=== PATIENT | male | born 1970 | race Two or more races ===

== ENCOUNTER 2021-11-07 07:46 | Emergency (ER) | payer MEDICAID, OTHER ==
[~2021-11-07] VITALS: Ht 175.3 cm; Wt 86.2 kg
[2021-11-07 08:19] LABS: Basophils # (auto) 0 10 ^3/uL (0-0.2); Basophils % (auto) 0.3 % (0.0-2.0); Eosinophils # (auto) 0.2 10 ^3/uL (0-0.8); Eosinophils % (auto) 3.8 % (0.0-7.0); Hematocrit 44.5 % (41.0-53.0); Hemoglobin 15.6 g/dL (13.5-17.5); Lymphocytes # (auto) 1.5 10 ^3/uL (0.4-5.4); Lymphocytes % (auto) 30.9 % (10.0-50.0); Mean Corpuscular Hemoglobin 32.2 pg (28.0-32.0); Mean Corpuscular Volume 91.8 fL (80.0-100.0); Monocytes # (auto) 0.4 10 ^3/uL (0-1.3); Monocytes % (auto) 8.2 % (0.0-12.0); Neutrophils # (auto) 2.8 10 ^3/uL (1.6-8.6); Neutrophils % (auto) 56.8 % (37.0-80.0); Nucleated Red Blood Cells % 0.2 %; Red Blood Cells 4.85 10^6/uL (4.5-5.90); Red Cell Distribution Width 13.1 % (11.8-14.3)
[2021-11-07 08:28] LABS: Urine Bacteria NONE SEEN /hpf (None Seen); Urine Blood Negative /uL (Negative); Urine Budding Yeast OCCASIONAL /hpf (None Seen); Urine Hyaline Cast FEW /lpf (0 - 2); Urine Mucus FEW (None Seen); Urine Specific Gravity 1.024 (1.001-1.035); Urine WBC <1 /hpf (0 - 3)
[2021-11-07 08:37] LABS: Albumin 4.2 g/dL (3.4-5.0); Calcium 8.8 mg/dL (8.5-10.1); Potassium 3.9 mmol/L (3.5-5.1)
[2021-11-07 08:41] LABS: BUN/Creatinine Ratio 23.1; Bilirubin, Total 0.4 mg/dL (0.2-1.0); Total Protein 7.6 g/dL (6.4-8.2)
[2021-11-07 09:23] VITALS: BP 122/74
[2021-11-07] MEDS ORDERED: METH750T22 PO (10:40)
[2021-11-07] MEDS ORDERED: DICY10CA PO (10:40)
[2021-11-07] MEDS ORDERED: DOCU-94 PO (10:40)
== END 2021-11-07 10:48 | disposition home or self-care (01) ==
LOC: ER 07:46
DX: K59.00 Constipation, unspecified (principal); K40.90 Unilateral inguinal hernia, without obstruction or gangrene, not specified as recurrent
CPT/HCPCS: 36415; 74176; 80053; 81001; 85025; 93005

== ENCOUNTER 2025-01-01 09:57 | Inpatient (IN) | payer MEDICAID ==
[~2025-01-01] VITALS: Ht 170.2 cm; Wt 87.0 kg
[~2025-01-01 09:57] MED LIST: DICY10CA PO; DOCU-94 PO; METH-1182 PO
--- NOTE | 2025-01-01 11:00 | ED.PDOC ---
GI ASSESSMENT HPI Comments 54 y/o M, with PMHx of anxiety presents to the ED for CC of GIB. Patient states, he has been experiencing dark black stool onset, [id number]. Patient reports, that he has no abdominal pain or discomfort however, is experiencing slight chest pain that radiates into his back and shoulders. Chest pain is dull, nonexertional, not associated with SOB, palpitations, diaphoresis. He does take ibuprofen daily, BID. Patient endorses, not taking his prescribed medications d/t symptoms. Patient denies hematemesis, fever, chills, nausea, prior abdominal surgeries, AC use, fatigue, or weakness. No other symptoms or modifying factors present at this time. He has never had a colonoscopy previously. Chief Complaint: GI BLEED Time Seen by MD: 10:45 Primary Care Provider: JANAE Faust Notes: Nurses Notes, Medications, Allergies Allergies: Coded Allergies: NO KNOWN ALLERGIES (Unverified , 11/07/21) Home Meds Active Scripts Dicyclomine Hcl (BENTYL CAPSULE) 10 Mg Cp, 1 CAP PO TID PRN, #30 CAP 0 Refills Prov:MICHAEL SRINIVASAN 11/07/21 Methocarbamol (Methocarbamol) 750 Mg Tab, 750 MG PO QHSP PRN, #20 TAB Prov:MICHAEL SRINIVASAN 11/07/21 Docusate Sodium (Colace) 100 Mg Cap, 100 MG PO BID, #30 CAP Prov:MICHAEL SRINIVASAN 11/07/21 Information Source: Patient Mode of Arrival: Ambulatory Timing: Days Duration: Since onset Prehospital treatment: None Quality: None Vomitus: None Stool: Black Severity: Moderate Recent: None Recent Hx of: None Pain Location: None Modifying Factors: Nothing Associated sign and symptoms: Melena Past Medical History PAST MEDICAL HISTORY: Anxiety Surgical History: Denies all surgeries Family History Family History: Reviewed,noncontributory to illness Social History Smoker: Non-Smoker Alcohol: Denies ETOH Use Drugs: Denies Drug Use Lives In: Home Constitutional: denies: chills, diaphoresis, fatigue, fever, malaise, sweats, weakness, others EENTM: denies: blurred vision, double vision, ear bleeding, ear discharge, ear drainage, ear pain, ear ringing, eye pain, eye redness, hearing loss, mouth pain, mouth swelling, nasal discharge, nose bleeding, nose congestion, nose pain, photophobia, tearing, throat pain, throat swelling, voice changes, others Respiratory: denies: cough, hemoptysis, orthopnea, SOB at rest, shortness of breath, SOB with excertion, stridor, wheezing, others Cardiovascular: reports: chest pain; denies: dizzy spells, diaphoresis, Dyspnea on exertion, edema, irregular heart beat, left arm pain, lightheadedness, palpitations, PND, syncope, others Gastrointestinal: reports: melena; denies: abdomen distended, abdominal pain, blood streaked bowels, constipated, diarrhea, dysphagia, difficulty swallowing, hematemesis, nausea, poor appetite, poor fluid intake, rectal bleeding, rectal pain, vomiting, others Genitourinary: denies: burning, dysuria, flank pain, frequency, hematuria, incontinence, penile discharge, penile sore, pain, testicle pain, testicle swelling, urgency, others Neurological: denies: dizziness, fainting, headache, left sided numbness, left sided weakness, numbness, paresthesia, pre-existing deficit, right sided numbness, right sided weakness, seizure, speech problems, tingling, tremors, weakness, others Musculoskeletal: denies: back pain, gout, joint pain, joint swelling, muscle pain, muscle stiffness, neck pain, others Integumetry: denies: bruises, change in color, change in hair/nails, dryness, laceration, lesions, lumps, rash, wounds, others Allergic/Immunocompromised: denies: Difficulty Healing, Frequent Infections, Hives, Itching, others Hematologic/Lymphatic: denies: anemia, blood clots, easy bleeding, easy bruising, swollen glands, others Endocrine: denies: excessive hunger, excessive sweating, excessive thirst, excessive urination, flushing, intolerance to cold, intolerance to heat, unexplained weight gain, unexplained weight loss, others Psychiatric: denies: anxiety, bipolar disorder, depression, hopeless, panic disorder, schizophrenia, sleepless, suicidal, others All Other Systems: Reviewed and Negative Physical Exam General Appearance: No Apparent Distress, Normal HEENT: Normal ENT Inspection, Pharynx Normal Neck: Full Range of Motion, Non-Tender, Normal, Normal Inspection Respiratory: Chest Non-Tender, Lungs Clear, No Accessory Muscle Use, No Respiratory Distress, Normal Breath Sounds Cardiovascular: No Edema, No Murmur, No Gallop, Normal Peripheral Pulses, Regular Rate/Rhythm Breast Exam: Deferred Gastrointestinal: No Organomegaly, Non Tender, No Pulsatile Mass, Normal Bowel Sounds, Soft Genitalia: Deferred Pelvic: Deferred Rectal: Deferred Extremities: No calf tenderness, Normal capillary refill, Normal inspection, Normal range of motion, Non-tender, No pedal edema Musculoskeletal : Apperance: Normal Neurologic: Alert, environmental services specialist II-XII nml as Tested, No Motor Deficits, Normal Affect, Normal Mood, No Sensory Deficits Cerebellar Function: Normal Reflexes: Normal Skin: Dry, Normal Color, Warm Lymphatic: No Adenopathy Was a procedure done? Was a procedure done?: No GI differential Dx Differential Diagnosis: Diverticular disease, Dysmenorrhea, Esophagitis, Gastritis/PUD, Gastroenteritis, GI hemorrhage, Inflammatory BD, Ischemic Bowel, Dehydration, Food Poisoning, Bacterial, Viral, Anemia X-Ray, Labs, Meds, VS Vital Signs Date Time Temp Pulse Resp B/P (MAP) Pulse Ox O2 Delivery O2 Flow Rate FiO2 01/01/25 11:57 97.9 8 18 114/59 (77) 98 97.9 01/01/25 11:37 62 18 98 Room Air 01/01/25 11:37 62 18 120/78 (92) 97 01/01/25 10:05 98.2 61 18 103/68 (80) 98 98.2 Lab Test 01/01/25 12:02 01/01/25 11:00 Range/Units Troponin I High Sensitivity Pending < 3 L </=54 ng/L White Blood Count 4.6 4.4-10.8 10^3/uL Red Blood Count 4.95 4.5-5.90 10^6/uL Hemoglobin 16.2 13.5-17.5 g/dL Hematocrit 45.6 41.0-53.0 % Mean Corpuscular Volume 92.3 80.0-100.0 fL Mean Corpuscular Hemoglobin 32.7 H 28.0-32.0 pg Mean Corpuscular Hemoglobin Concent 35.5 32.0-36.0 g/dL Red Cell Distribution Width 13.4 11.8-14.3 % Platelet Count 279 140-450 10^3/uL Mean Platelet Volume 6.9 6.9-10.8 fL Neutrophils (%) (Auto) 60.0 37.0-80.0 % Lymphocytes (%) (Auto) 26.9 10.0-50.0 % Monocytes (%) (Auto) 8.8 0.0-12.0 % Eosinophils (%) (Auto) 3.8 0.0-7.0 % Basophils (%) (Auto) 0.5 0.0-2.0 % Neutrophils # (Auto) 2.8 1.6-8.6 10 ^3/uL Lymphocytes # (Auto) 1.2 0.4-5.4 10 ^3/uL Monocytes # (Auto) 0.4 0-1.3 10 ^3/uL Eosinophils # (Auto) 0.2 0-0.8 10 ^3/uL Basophils # (Auto) 0 0-0.2 10 ^3/uL Nucleated Red Blood Cells 0.2 % Prothrombin Time 10.7 9.3-11.8 sec Prothrombin Time INR 1.01 0.9-1.15 Activated Partial Thromboplast Time 26.7 24.5-34.5 SEC Sodium Level 142 136-145 mmol/L Potassium Level 4.8 3.5-5.1 mmol/L Chloride Level 105 98-107 mmol/L Carbon Dioxide Level 31 20-31 mmol/L Anion Gap 6 5-15 Blood Urea Nitrogen 16 9-23 mg/dL Creatinine 1.02 0.700-1.30 mg/dL Glomerular Filtration Rate Calc 86 >90 mL/min BUN/Creatinine Ratio 15.7 10.0-20.0 Serum Glucose 96 74-106 mg/dL Calcium Level 9.9 8.7-10.4 mg/dL Lipase 38 12-53 U/L Current Medications Medications (Trade) Dose Ordered Sig/Daniel Route Start Time Stop Time Status Last Admin Pantoprazole Sodium (Protonix) 40 mg ONCE ONCE IV 01/01/25 11:00 01/01/25 11:17 DC 01/01/25 11:[address] [address] Ph: [phone] DIAGNOSTIC IMAGING Diagnostic Imaging Report : [id number] Signed PATIENT: JEREMY DINGACCT: [id number] UNIT: [id number] : 1970 LOC: ER ROOM / BED: / AGE / SEX: 54 / M ADM STATUS: REG ER SERVICE 1049 ORDERING PHYSICIAN: ABEBE MAURO MD PROCEDURE(s): CXRP - CHEST PORTABLE REASON: chest pain ORDER NUMBER(s): [id number], ACCESSION NUMBER(s): [id number] EXAM: XY CHEST PORTABLE HISTORY: chest pain COMPARISON: None TECHNIQUE: Portable AP view of the chest was performed. FINDINGS: No pneumothorax, consolidative infiltrates, or pulmonary edema. The heart is not enlarged. There is mild thoracic spondylosis and levoscoliosis. IMPRESSION: No acute intrathoracic process. ATED BY: SAEED RHODES MD DICTATED DATE/TIME: 01/01/25 1111 SIGNED BY: SAEED RHODES MD SIGNED DATE/TIME: 01/01/25 1111 CC: X-Ray, Labs, Meds, VS Comment Patient presenting for melena for the past 10 days and chest pain in the setting of daily NSAID use. Will check labs to evaluate for anemia, infection, electrolyte abnormality, dehydration, etc. EKG and troponin to evaluate for ACS or arrhythmia. CT abdomen and pelvis to evaluate for acute appendicitis, colitis, diverticulitis, diverticulosis, perforation, etc. Will treat with IV protonix Time of 1ST Reevaluation: 11:15 Reevaluation 1ST: Unchanged Patient Education/Counseling: Diagnosis, Treatment Family Education/Counseling: No Family Present SEPSIS Sepsis Screen Date sepsis recognized/suspect: Jan 01, 2025 Time Sepsis recognized/suspect: 1005 Recent Procedure: No On Antibiotic Therapy: No Respiratory Rate >20: No Heart Rate >90: No Temp<36 C (96.8 F) or >38.3 C: No SBP <90 or MAP <65 mmHG: No New Acute Mental Status Change: No Is the patient on CPAP, BIPAP,: No Physician Orders Chest Portable (01/01/25 10:49) Electrocardigram (01/01/25 10:49) Electrocardigram (01/01/25 11:49) Electrocardigram (01/01/25 13:49) Troponin-I Hs (01/01/25 11:49) Troponin-I Hs (01/01/25 13:49) Ct Ab Pel With Iv Con Only (01/01/25 11:03) Vital Signs Date Time Temp Pulse Resp B/P (MAP) Pulse Ox O2 Delivery O2 Flow Rate FiO2 01/01/25 11:57 97.9 8 18 114/59 (77) 98 97.9 01/01/25 11:37 62 18 98 Room Air 01/01/25 11:37 62 18 120/78 (92) 97 01/01/25 10:05 98.2 61 18 103/68 (80) 98 98.2 Laboratory Tests Test 01/01/25 11:00 White Blood Count 4.6 10^3/uL (4.4-10.8) Medications Medications Dose Ordered Sig/Daniel Route Start Time Stop Time Status Last Admin Dose Admin Pantoprazole Sodium 40 mg ONCE ONCE IV 01/01/25 11:00 01/01/25 11:17 DC 01/01/25 11:34 Departure 1 Departure Time of Disposition: 12:25 (Labs unremarkable but pending CTAP. Signed out to Dr. Brice pending results and admission for GIB.) Impression: Primary Impression: Melena Additional Impression: GI bleed Qualified Codes: K92.1 - Melena Disposition: 30 STILL A PATIENT Admit to: Med Surg Condition: Guarded Critical Care Note Critical Care Time?: Yes (35 min-critical care time only) Critical care comment: GI bleed Stability Stability form required: No Heart Score Heart Score: Heart Score Response (Comments) Value History Slightly Suspicious 0 EKG Normal 0 Age 45-64 1 Risk Factors 1 or 2 risk factors 1 Troponin 1-2 x's Normal limit 1 Total 3 I personally scribed for ABEBE MAURO MD ([email or web address]) on 01/01/25 at 11:00. Electronically submitted by Mouna Galarza ([email or web address]). I personally scribed for ABEBE MAURO MD ([email or web address]) on 01/01/25 at 11:17. Electronically submitted by Mouna Galarza ([email or web address]). ABEBE MAURO MD Jan 01, 2025 11:00
--- NOTE | 2025-01-01 11:13 | DVH ---
EXAM: XY CHEST PORTABLE HISTORY: chest pain COMPARISON: None TECHNIQUE: Portable AP view of the chest was performed. FINDINGS: No pneumothorax, consolidative infiltrates, or pulmonary edema. The heart is not enlarged. There is m ild thoracic spondylosis and levoscoliosis. IMPRESSION: No acute intrathoracic process.
[2025-01-01 11:26] LABS: Hematocrit 45.6 % (41.0-53.0); Hemoglobin 16.2 g/dL (13.5-17.5); Mean Corpuscular Hemoglobin 32.7 pg (28.0-32.0); Mean Corpuscular Volume 92.3 fL (80.0-100.0); Nucleated Red Blood Cells % 0.2 %
[2025-01-01] MEDS: PANTOPRAZOLE 40 MG/10 ML VIAL INJ IV ONE (11:34)
[2025-01-01 11:37] LABS: Chloride 105 mmol/L (98-107); Potassium 4.8 mmol/L (3.5-5.1); Sodium 142 mmol/L (136-145)
[2025-01-01 11:38] LABS: Anion Gap 6 (5-15); Carbon Dioxide 31 mmol/L (20-31)
[2025-01-01 11:39] LABS: Calcium 9.9 mg/dL (8.7-10.4)
[2025-01-01 11:44] LABS: BUN/Creatinine Ratio 15.7 (10.0-20.0); Blood Urea Nitrogen 16 mg/dL (9-23); Glucose 96 mg/dL (74-106); INR 1.01 (0.9-1.15); Lipase 38 U/L (12-53); Partial Thromboplastin Time 26.7 SEC (24.5-34.5); Prothrombin Time 10.7 sec (9.3-11.8)
--- NOTE | 2025-01-01 12:56 | DVH ---
Exam: CT CT AB PEL WITH IV CON ONLY History: GI bleed COMPARISON: None Technique: Multidetector spiral CT of the abdomen and pelvis was performed from lung bases to pubic s ymphysis. Intravenous contrast was administered during this examination. Portal venous imaging was o btained. Axial, coronal and sagittal multiplanar reformats were performed by the technologist on a [employer] workstation. Radiation Dose : 1. Abdomen/Pelvis: CTDIvol 17.27mGy, DLP 978.21 mGy*cm. Findings: Lung Bases: Dependent atelectasis Liver: Hepatic steatosis. Gallbladder and Biliary Tree: Unremarkable Spleen: Unremarkable Pancreas: The pancreas is normal in appearance without focal lesions or abnormal enhancement. Adrenal Glands: Unremarkable Kidneys: No hydronephrosis. Bladder: Unremarkable Bowel: The stomach is grossly normal in appearance. Mild bowel wall thickening of the descending colo n and rectosigmoid colon. The appendix is not visualized; however, no secondary findings of acute frank endicitis identified. Ascites: Absent Lymphadenopathy: No mesenteric, retroperitoneal or periportal lymphadenopathy. Abdominal Wall and Mesentery: Unremarkable. Vasculature: The visualized abdominal aorta is normal in size and caliber. Abdominal and pelvic vess els demonstrate normal enhancement. Pelvic Organs: Unremarkable Musculoskeletal: No aggressive focal bony lesions, acute fractures or dislocation. IMPRESSION: Mild bowel wall thickening of the descending and rectosigmoid colon. This may represent mild colitis . Otherwise, no acute findings.
--- NOTE | 2025-01-01 13:53 | ED.PDOC ---
Departure 1 Departure Time of Disposition: 12:25 (Labs unremarkable but pending CTAP. Signed out to Dr. Brice pending results and admission for GIB.) Impression: Primary Impression: Melena Additional Impression: GI bleed Qualified Codes: K92.1 - Melena Disposition: 09 ADMITTED INPATIENT Admit to: Med Surg Condition: Guarded YFN BRICE MD Jan 01, 2025 13:53
[2025-01-01] MEDS ORDERED: HYDROcodone-ACET 5/325MG TAB PO PRN (15:45)
[2025-01-01] MEDS ORDERED: ONDANSETRON HCL 4 MG/2 ML VIAL IV PRN (15:45)
[2025-01-01] MEDS ORDERED: DOCUSATE SOD 100 MG CAP PO PRN (15:45)
[2025-01-01] MEDS ORDERED: ACETAMINOPHEN 325 MG TAB PO PRN (15:45)
[2025-01-01 18:19] LABS: Urine Protein, UAD Negative (Negative)
--- NOTE | 2025-01-01 18:29 | DVHHP2 ---
History of Present Illness Reason for Visit: Acute abdominal pain History of Present Illness The patient is a 54-year-old male with past medical history of anxiety presented to [facility] ED with complaint of GI bleed. Patient reports he has been experiencing dark black stool for the past 10 days, associated with chest pressure that radiates into his back and shoulders, getting worse that prompted this visit. Patient was seen and evaluated in the ED, laboratory data shows WBC 4.6, platelets 279, sodium 142, potassium 4.8, BUN 16, creatinine 1.02, glucose 96, calcium 9.3, troponin < 3, blood pressure 114/59, heart rate 62, temperature 97.9 F, O2 saturation 98% on room air. Abdomen/pelvis CT revealing mild wall thickening of the descending and rectosigmoid colon; this may represent mild colitis. Please see medication orders section in the computer. On my assessment, patient denied chest pain, no headache, no dizziness, no diaphoresis, no shor tness of breath, no nausea, no vomiting, no fever, no chills. Patient was admitted for further evaluation and medical treatment Past Medical History Anxiety Past Surgical History Denies all surgeries Family History Reviewed, noncontributory to the management of this case. Past Social History The patient lives at home, denies smoking, alcohol or illicit drugs abuse. Review of Systems Constitutional: No: Fever, Chills, Sweats, Weakness, Malaise, Other Eyes: No: Pain, Vision change, Conjunctivae inflammation, Eyelid inflammation, Other, Redness ENT: No: Ear pain, Ear discharge, Nose pain, Nose discharge, Nose congestion, Mouth pain, Mouth swelling, Throat pain, Throat swelling, Other Cardiovascular: Chest Pain; No: Palpitations, Orthopnea, Paroxysmal Noc. Dyspnea, Edema, Lt Headedness, Other Gastrointestinal: Melena; No: Nausea, Vomiting, Abdominal Pain, Diarrhea, Constipation, Hematochezia, Other Genitourinary: No Dysuria, No Frequency, No Incontinence, No Hematuria, No Retention, No Other Musculoskeletal: No: other, neck pain, shoulder pain, arm pain, back pain, hand pain, leg pain, foot pain Skin: No: Rash, Lesions, Jaundice, Bruising, Other Neurological: No: Weakness, Numbness, Incoordination, Change in speech, Confusion, Seizures, Other Allergies: Coded Allergies: NO KNOWN ALLERGIES (Unverified , 11/07/21) Medications Current Medications Medications Dose Ordered Sig/Daniel Route Start Time Stop Time Status Last Admin Dose Admin Pantoprazole Sodium 40 mg DAILY IV 01/02/25 10:00 Sodium Chloride 10 ml Q8HR IV 01/01/25 22:00 Acetaminophen/ Hydrocodone Bitart 1 tab Q4HP PRN PO 01/01/25 15:45 Ondansetron HCl 4 mg Q4HP PRN IV 01/01/25 15:45 Docusate Sodium 100 mg BIDPRN PRN PO 01/01/25 15:45 Acetaminophen 650 mg Q6HP PRN PO 01/01/25 15:45 Exam Vital Signs Vital Signs Date Time Temp Pulse Resp B/P (MAP) Pulse Ox O2 Delivery O2 Flow Rate FiO2 01/01/25 11:57 97.9 8 18 114/59 (77) 98 97.9 01/01/25 11:37 Room Air General Appearance: Alert, Oriented X3, Cooperative, No acute distress HEENT: Atraumatic, PERRLA, EOMI, Mucous membr. moist/pink Respiratory: Normal air movement Cardiovascular: Regular rate, Normal S1, Normal S2, No murmurs Abdominal: Normal bowel sounds, Soft, No tenderness, No hepatospenomegaly, No masses Extremities: No clubbing, No cyanosis, No edema, Normal pulses, No tenderness/swelling Skin: No rashes, No breakdown, No significant lesion Neuro: Normal gait, Normal speech, Strength at 5/5 X4 ext, Normal tone, Sensation intact, Cranial nerves 3-12 NL, Reflexes 2+ Psych/Mental Status: Mental status NL, Mood NL Labs/Xrays Labs Test 01/01/25 14:12 01/01/25 11:00 01/01/25 10:45 Range/Units Troponin I High Sensitivity < 3 L </=54 ng/L White Blood Count 4.6 4.4-10.8 10^3/uL Red Blood Count 4.95 4.5-5.90 10^6/uL Hemoglobin 16.2 13.5-17.5 g/dL Hematocrit 45.6 41.0-53.0 % Mean Corpuscular Volume 92.3 80.0-100.0 fL Mean Corpuscular Hemoglobin 32.7 H 28.0-32.0 pg Mean Corpuscular Hemoglobin Concent 35.5 32.0-36.0 g/dL Red Cell Distribution Width 13.4 11.8-14.3 % Platelet Count 279 140-450 10^3/uL Mean Platelet Volume 6.9 6.9-10.8 fL Neutrophils (%) (Auto) 60.0 37.0-80.0 % Lymphocytes (%) (Auto) 26.9 10.0-50.0 % Monocytes (%) (Auto) 8.8 0.0-12.0 % Eosinophils (%) (Auto) 3.8 0.0-7.0 % Basophils (%) (Auto) 0.5 0.0-2.0 % Neutrophils # (Auto) 2.8 1.6-8.6 10 ^3/uL Lymphocytes # (Auto) 1.2 0.4-5.4 10 ^3/uL Monocytes # (Auto) 0.4 0-1.3 10 ^3/uL Eosinophils # (Auto) 0.2 0-0.8 10 ^3/uL Basophils # (Auto) 0 0-0.2 10 ^3/uL Nucleated Red Blood Cells 0.2 % Prothrombin Time 10.7 9.3-11.8 sec Prothrombin Time INR 1.01 0.9-1.15 Activated Partial Thromboplast Time 26.7 24.5-34.5 SEC Sodium Level 142 136-145 mmol/L Potassium Level 4.8 3.5-5.1 mmol/L Chloride Level 105 98-107 mmol/L Carbon Dioxide Level 31 20-31 mmol/L Anion Gap 6 5-15 Blood Urea Nitrogen 16 9-23 mg/dL Creatinine 1.02 0.700-1.30 mg/dL Glomerular Filtration Rate Calc 86 >90 mL/min BUN/Creatinine Ratio 15.7 10.0-20.0 Serum Glucose 96 74-106 mg/dL Calcium Level 9.9 8.7-10.4 mg/dL Lipase 38 12-53 U/L Urine Color Yellow Yellow Urine Clarity Clear Clear Urine pH 6.0 5.0-9.0 Urine Specific [place] 1.027 1.001-1.035 Urine Protein Negative Negative Urine Ketones Negative Negative Urine Blood Negative Negative /uL Urine Nitrite Negative Negative Urine Bilirubin Negative Negative Urine Urobilinogen Normal Negative mg/dL Urine Leukocyte Esterase Negative Negative /uL Urine RBC <1 0 - 3 /hpf Urine Microscopic WBC < 1 0-3 /HPF Urine Squamous Epithelial Cells None seen <5 /hpf Urine Bacteria None seen None Seen /hpf Urine Mucus Few None Seen Urine Glucose Normal Normal mg/dL PATIENT: JOSE DING: [id number] UNIT: [id number] : 1970 LOC: ER ROOM / BED: / AGE / SEX: 54 / M ADM STATUS: REG ER SERVICE 1103 ORDERING PHYSICIAN: ABEBE MAURO MD PROCEDURE(s): ABPLIV - CT AB PEL WITH IV CON ONLY REASON: GI bleed ORDER NUMBER(s): [id number], ACCESSION NUMBER(s): [id number] Exam: CT CT AB PEL WITH IV CON ONLY History: GI bleed COMPARISON: None Technique: Multidetector spiral CT of the abdomen and pelvis was performed from lung bases to pubic symphysis. Intravenous contrast was administered during this examination. Portal venous imaging was obtained. Axial, coronal and sagittal multiplanar reformats were performed by the technologist on a separate workstation. Radiation Dose: 1. Abdomen/Pelvis: CTDIvol 17.27mGy, DLP 978.21 mGy*cm. Findings: Lung Bases: Dependent atelectasis Liver: Hepatic steatosis. Gallbladder and Biliary Tree: Unremarkable Spleen: Unremarkable Pancreas: The pancreas is normal in appearance without focal lesions or abnormal enhancement. Adrenal Glands: Unremarkable Kidneys: No hydronephrosis. Bladder: Unremarkable Bowel: The stomach is grossly normal in appearance. Mild bowel wall thickening of the descending colon and rectosigmoid colon. The appendix is not visualized; however, no secondary findings of acute appendicitis identified. Ascites: Absent Lymphadenopathy: No mesenteric, retroperitoneal or periportal lymphadenopathy. Abdominal Wall and Mesentery: Unremarkable. Vasculature: The visualized abdominal aorta is normal in size and caliber. Abdom inal and pelvic vessels demonstrate normal enhancement. Pelvic Organs: Unremarkable Musculoskeletal: No aggressive focal bony lesions, acute fractures or dislocation. IMPRESSION: Mild bowel wall thickening of the descending and rectosigmoid colon. This may represent mild colitis. Otherwise, no acute findings. Assessment/Plan Assessment/Plan Melena Acute colitis GI bleed Acute abdominal pain Plan 1. Admit to med surge unit 2. Breathing treatment 3. Pain control management 4. IV antibiotic management 5. Management of fluids and electrolytes 6. Consultation for hospitalist 7. Diagnostic test abdomen/pelvis CT 8. DVT prophylaxis-on SCDs 9. Repeat labs CBC, CMP in a.m. 10. Home medication reviewed and reconciled 11. Continue with current medical management 12. Treatment plan discussed with patient and RN. Patient verbalized understanding. Plan discussed with: Patient, Other (RN) My Orders Orders - CHASE JEFFERSON DNP Procedure Category Date Status Time Pantoprazole PHA 01/02/25 In Process (Protonix) 10:00 Allergies SIN 01/01/25 In Process 15:45 Code Status CODE 01/01/25 Transmitted 15:45 Sodium Chloride Lock PHA 01/01/25 In Process (Saline Lock Ns) 22:00 Oxygen Per Hour RT 01/01/25 Transmitted 15:45 Hydrocodone-Acet PHA 01/01/25 In Process 5/325mg Tab ([place] 15:45 Ondansetron Hcl PHA 01/01/25 In Process (Zofran) 15:45 Docusate Sodium PHA 01/01/25 In Process Capsule (Colace 15:45 Complete Blood Count LAB 01/02/25 Verified 04:00 Comprehensive LAB 01/02/25 Verified Metabolic Panel 04:00 Condition: Serious SIN 01/01/25 In Process 15:45 Acetaminophen Tablet PHA 01/01/25 In Process (Tylenol Tablet) 15:45 Clear Liq Diet DIET 01/01/25 Transmitted Dinner Bedrest With Bathroom SIN 01/01/25 In Process Privileg 15:45 Sequential SIN 01/01/25 In Process Compression Device Problem List: (1) GI bleed (2) Acute colitis (3) Melena (4) Acute abdominal pain Date of Service: Jan 01, 2025 Billing Provider: CHASE JEFFERSON DNP Common Visit Codes: [id number] INP/OBS CARE (HIGH) CHASE JEFFERSON DNP Jan 01, 2025 18:29
[2025-01-01] MEDS ORDERED: NITROGLYCERIN 0.4 MG SL TAB SL PRN (18:30)
[2025-01-01] MEDS ORDERED: MORPHINE SULFATE INJ 2 MG/ml SYRG IV PRN (18:30)
[2025-01-01] MEDS: cefTRIAXone 1GM/50ML D5W 50 ML IV ONE (18:30)
[2025-01-01 20:19] VITALS: RESP 18; O2SAT 96
[2025-01-01 20:40] VITALS: BP 143/79; PULSE 64; RESP 20; TEMP 98.1; O2SAT 95
[2025-01-01] MEDS: MELATONIN 5 MG TAB PO ONE (22:22)
[2025-01-01] MEDS: SODIUM CHLOR 0.9% PF (SALINE LOCK) 10ML VIAL/SYR IV SCH (22:22)
[2025-01-02 04:18] LABS: Hematocrit 43.8 % (41.0-53.0); Hemoglobin 15.3 g/dL (13.5-17.5); Mean Corpuscular Hemoglobin 32.2 pg (28.0-32.0); Mean Corpuscular Volume 92.0 fL (80.0-100.0); Nucleated Red Blood Cells % 0.0 %
[2025-01-02 04:32] LABS: Alanine Aminotransferase 19 U/L (7-40); Albumin 4.5 g/dL (3.2-4.8); Alkaline Phosphatase 61 U/L (46-116); Anion Gap 8 (5-15); BUN/Creatinine Ratio 15.6 (10.0-20.0); Bilirubin, Total 0.9 mg/dL (0.2-1.0); Blood Urea Nitrogen 15 mg/dL (9-23); Calcium 9.4 mg/dL (8.7-10.4); Carbon Dioxide 29 mmol/L (20-31); Chloride 103 mmol/L (98-107); Glucose 91 mg/dL (74-106); Potassium 3.9 mmol/L (3.5-5.1); Sodium 140 mmol/L (136-145); Total Protein 6.9 g/dL (5.7-8.2)
[2025-01-02 05:19] VITALS: BP 104/69; PULSE 65; RESP 18; TEMP 98.1; O2SAT 94
[2025-01-02 08:30] VITALS: BP 129/75; PULSE 58; RESP 16; TEMP 98; O2SAT 94
[2025-01-02] MEDS: cefTRIAXone 1GM/50ML D5W 50 ML IV SCH (08:43)
[2025-01-02] MEDS: PANTOPRAZOLE 40 MG/10 ML VIAL INJ IV SCH (08:43)
[2025-01-02 12:00] VITALS: BP 122/73; PULSE 51; RESP 18; TEMP 98.3; O2SAT 96
--- NOTE | 2025-01-02 17:04 | DVHPN2 ---
Subjective Patient reporting black stool, mild abdominal pain Reviewed: Care Plan, H&P Changes from previous H/P or p: No Changes General: Per HPI Eyes: No Pain, No Vision change, No Conjunctivae inflammation, No Eyelid inflammation, No Other, No Redness ENT: No Ear pain, No Ear discharge, No Nose pain, No Nose discharge, No Nose congestion, No Mouth pain, No Mouth swelling, No Throat pain, No Throat swelling, No Other Cardiovascular: Chest Pain; No Palpitations, No Orthopnea, No Paroxysmal Noc. Dyspnea, No Edema, No Lt Headedness, No Other Gastrointestinal: No Nausea, No Vomiting, No Abdominal Pain, No Diarrhea, No Constipation; Melena; No Hematochezia, No Other Genitourinary: No Dysuria, No Frequency, No Incontinence, No Hematuria, No Retention, No Other Musculoskeletal: No other, No neck pain, No shoulder pain, No arm pain, No back pain, No hand pain, No leg pain, No foot pain Skin: No Rash, No Lesions, No Jaundice, No Bruising, No Other Objective Vitals Vital Signs Date Time Temp Pulse Resp B/P (MAP) Pulse Ox O2 Delivery O2 Flow Rate FiO2 01/02/25 12:00 98.3 51 18 122/73 (89) 96 98.3 01/01/25 20:40 Room Air* 0 21 Intake/Output Intake and Output 01/02/25 07:00 Intake Total 200 ml Balance 200 ml Intake Oral 100 ml IV Total 100 ml # Voids 3 General Appearance: Alert, Oriented X3, Cooperative, No acute distress HEENT: Atraumatic, PERRLA Cardiovascular: Normal S1, Normal S2 Musculoskeletal: Normal sensory function, Normal motor function Extremities: No cyanosis Psych/Mental Status: Mental status NL, Mood NL Medications Current Medications Medications Dose Ordered Sig/Daniel Route Start Time Stop Time Status Last Admin Dose Admin Pantoprazole Sodium 40 mg DAILY IV 01/02/25 10:00 01/02/25 08:43 40 MG Sodium Chloride 10 ml Q8HR IV 01/01/25 22:00 01/02/25 13:21 10 ML Acetaminophen/ Hydrocodone Bitart 1 tab Q4HP PRN PO 01/01/25 15:45 Ondansetron HCl 4 mg Q4HP PRN IV 01/01/25 15:45 Docusate Sodium 100 mg BIDPRN PRN PO 01/01/25 15:45 Acetaminophen 650 mg Q6HP PRN PO 01/01/25 15:45 Ceftriaxone Sodium 50 ml @ 100 mls/hr DAILY@09 IV 01/02/25 09:00 01/02/25 08:43 100 MLS/HR Metronidazole 100 ml @ 100 mls/hr Q8HR IV 01/01/25 22:00 01/02/25 13:21 100 MLS/HR Nitroglycerin 0.4 mg Q5MINP PRN SL 01/01/25 18:30 Morphine Sulfate 2 mg Q30M PRN IV 01/01/25 18:30 Laboratory Results Laboratory Tests 01/02/25 03:44 Chemistry Test 01/02/25 03:44 Albumin 4.5 g/dL (3.2-4.8) Calcium Level 9.4 mg/dL (8.7-10.4) Total Protein 6.9 g/dL (5.7-8.2) LFT Test 01/02/25 03:44 Alanine Aminotransferase (ALT) 19 U/L (7-40) Alkaline Phosphatase 61 U/L (46-116) Aspartate Amino Transferase (AST) 19 U/L (13-40) Total Bilirubin 0.9 mg/dL (0.2-1.0) Urinalysis Test 01/01/25 10:45 Urine Color Yellow (Yellow) Urine Clarity Clear (Clear) Urine pH 6.0 (5.0-9.0) Urine Specific [place] 1.027 (1.001-1.035) Urine Protein Negative (Negative) Urine Ketones Negative (Negative) Urine Blood Negative /uL (Negative) Urine Nitrite Negative (Negative) Urine Bilirubin Negative (Negative) Urine Urobilinogen Normal mg/dL (Negative) Urine Leukocyte Esterase Negative /uL (Negative) Urine RBC <1 /hpf (0 - 3) Urine Microscopic WBC < 1 /HPF (0-3) Urine Squamous Epithelial Cells None seen /hpf (<5) Urine Bacteria None seen /hpf (None Seen) Urine Mucus Few (None Seen) Urine Glucose Normal mg/dL (Normal) Labs and/or images reviewed: Labs reviewed by me, Image(s) reviewed by me Assessment/Plan Assessment/Plan Impression: -acute colitis -anxiety disorder -obesity Plan: -clear liquid diet -gentle IV hydration -IV antibiotic therapy -PPI -repeat labs in a.m. Total time spent with patient discussing and formulating plan of care: 35 minutes. This medical document was created using an electronic medical record system with [employer] dictation system. Although this document has been carefully reviewed, there may still be some phonetic and typographical errors. These areas are purely typographical due to imperfections of the software programs, and do not reflect any compromise in the patient's medical care. Plan discussed with: Patient, Other (RN) My Orders Orders - KARIME INIGUEZ NP Procedure Category Date Status Time NS PHA 01/02/25 Verified 17:15 Complete Blood Count LAB 01/03/25 Verified 04:00 Basic Metabolic Panel LAB 01/03/25 Verified 04:00 Date of Service: Jan 03, 2025 Billing Provider: KARIME INIGUEZ NP Common Visit Codes: [id number] INP/OBS CARE(HIGH) KARIME INIGUEZ NP Jan 02, 2025 17:04
[2025-01-02] MEDS: SODIUM CHLORIDE 0.9% 1,000 ML IV SCH (18:10)
[2025-01-02 18:14] VITALS: BP 123/87; PULSE 64; RESP 18; TEMP 98.6; O2SAT 97
[2025-01-02 20:00] VITALS: PULSE 64; RESP 18; O2SAT 97
[2025-01-02 21:00] VITALS: BP 133/86; PULSE 64; RESP 18; TEMP 98.5; O2SAT 97
[2025-01-03 05:00] VITALS: BP 113/90; PULSE 66; RESP 18; TEMP 98.1; O2SAT 96
[2025-01-03 06:13] LABS: Hematocrit 42.4 % (41.0-53.0); Hemoglobin 15.2 g/dL (13.5-17.5); Mean Corpuscular Hemoglobin 32.5 pg (28.0-32.0); Mean Corpuscular Volume 90.5 fL (80.0-100.0); Nucleated Red Blood Cells % 0.1 %
[2025-01-03 06:36] LABS: Anion Gap 10 (5-15); Calcium 9.7 mg/dL (8.7-10.4); Carbon Dioxide 26 mmol/L (20-31); Chloride 106 mmol/L (98-107); Potassium 3.6 mmol/L (3.5-5.1); Sodium 142 mmol/L (136-145)
[2025-01-03 06:42] LABS: BUN/Creatinine Ratio 11.5 (10.0-20.0); Blood Urea Nitrogen 11 mg/dL (9-23); Glucose 91 mg/dL (74-106)
[2025-01-03 08:00] VITALS: PULSE 63; RESP 16; O2SAT 95
[2025-01-03 09:00] VITALS: BP 120/76; PULSE 63; RESP 16; TEMP 97.4; O2SAT 95
[2025-01-03 13:00] VITALS: BP 127/92; PULSE 59; RESP 16; TEMP 97.7; O2SAT 95
--- NOTE | 2025-01-03 13:28 | DVHDS2 ---
Discharge Summary Date of Admission Jan 01, 2025 at 18:26 Date of Discharge: Jan 03, 2025 Admitting Diagnosis Acute colitis Labs/Diagnostic Data: Laboratory Results Test 01/03/25 05:34 01/02/25 03:44 01/01/25 14:12 01/01/25 11:00 White Blood Count 4.8 10^3/uL (4.4-10.8) Red Blood Count 4.68 10^6/uL (4.5-5.90) Hemoglobin 15.2 g/dL (13.5-17.5) Hematocrit 42.4 % (41.0-53.0) Mean Corpuscular Volume 90.5 fL (80.0-100.0) Mean Corpuscular Hemoglobin 32.5 pg (28.0-32.0) Mean Corpuscular Hemoglobin Concent 35.9 g/dL (32.0-36.0) Red Cell Distribution Width 13.1 % (11.8-14.3) Platelet Count 258 10^3/uL (140-450) Mean Platelet Volume 6.8 fL (6.9-10.8) Neutrophils (%) (Auto) 59.9 % (37.0-80.0) Lymphocytes (%) (Auto) 27.0 % (10.0-50.0) Monocytes (%) (Auto) 9.6 % (0.0-12.0) Eosinophils (%) (Auto) 3.3 % (0.0-7.0) Basophils (%) (Auto) 0.2 % (0.0-2.0) Neutrophils # (Auto) 2.9 10 ^3/uL (1.6-8.6) Lymphocytes # (Auto) 1.3 10 ^3/uL (0.4-5.4) Monocytes # (Auto) 0.5 10 ^3/uL (0-1.3) Eosinophils # (Auto) 0.2 10 ^3/uL (0-0.8) Basophils # (Auto) 0 10 ^3/uL (0-0.2) Nucleated Red Blood Cells 0.1 % Sodium Level 142 mmol/L (136-145) Potassium Level 3.6 mmol/L (3.5-5.1) Chloride Level 106 mmol/L (98-107) Carbon Dioxide Level 26 mmol/L (20-31) Anion Gap 10 (5-15) Blood Urea Nitrogen 11 mg/dL (9-23) Creatinine 0.96 mg/dL (0.700-1.30) Glomerular Filtration Rate Calc 93 mL/min (>90) BUN/Creatinine Ratio 11.5 (10.0-20.0) Serum Glucose 91 mg/dL (74-106) Calcium Level 9.7 mg/dL (8.7-10.4) Total Bilirubin 0.9 mg/dL (0.2-1.0) Aspartate Amino Transferase (AST) 19 U/L (13-40) Alanine Aminotransferase (ALT) 19 U/L (7-40) Alkaline Phosphatase 61 U/L (46-116) Total Protein 6.9 g/dL (5.7-8.2) Albumin 4.5 g/dL (3.2-4.8) Troponin I High Sensitivity < 3 ng/L (</=54) Prothrombin Time 10.7 sec (9.3-11.8) Prothrombin Time INR 1.01 (0.9-1.15) Activated Partial Thromboplast Time 26.7 SEC (24.5-34.5) Lipase 38 U/L (12-53) Test 01/01/25 10:45 Urine Color Yellow (Yellow) Urine Clarity Clear (Clear) Urine pH 6.0 (5.0-9.0) Urine Specific [place] 1.027 (1.001-1.035) Urine Protein Negative (Negative) Urine Ketones Negative (Negative) Urine Blood Negative /uL (Negative) Urine Nitrite Negative (Negative) Urine Bilirubin Negative (Negative) Urine Urobilinogen Normal mg/dL (Negative) Urine Leukocyte Esterase Negative /uL (Negative) Urine RBC <1 /hpf (0 - 3) Urine Microscopic WBC < 1 /HPF (0-3) Urine Squamous Epithelial Cells None seen /hpf (<5) Urine Bacteria None seen /hpf (None Seen) Urine Mucus Few (None Seen) Urine Glucose Normal mg/dL (Normal) Other Laboratory Tests 01/03/25 05:34 Brief Hx & Hospital Course: History of Present Illness The patient is a 54-year-old male with past medical history of anxiety presented to [facility] ED with complaint of GI bleed. Patient reports he has been experiencing dark black stool for the past 10 days, associated with chest pressure that radiates into his back and shoulders, getting worse that prompted this visit. Patient was seen and evaluated in the ED, laboratory data shows WBC 4.6, platelets 279, sodium 142, potassium 4.8, BUN 16, creatinine 1.02, glucose 96, calcium 9.3, troponin < 3, blood pressure 114/59, heart rate 62, temperature 97.9 F, O2 saturation 98% on room air. Abdomen/pelvis CT revealing mild wall thickening of the descending and rectosigmoid colon; this may represent mild colitis. Please see medication orders section in the computer. On my assessment, patient denied chest pain, no headache, no dizziness, no diaphoresis, no shortness of breath, no nausea, no vomiting, no fever, no chills. Patient was admitted for further evaluation and medical treatment. Course of hospitalization: Patient was started on IV antibiotic therapy, gentle IV hydration. Patient was started on clear liquid diet. Patient is abdominal pain has improved. Patient will be discharged home on antibiotic therapy for the next five days. Patient will have his diet advanced as tolerated. He will follow up with the discharge Clinic in one week. All questions answered. Physical examination General: Alert and Oriented x3. No acute distress. Well-nourished. Eyes: EOMI. Anicteric. HENT: Moist mucous membranes. Lungs: Clear to auscultation bilaterally. No accessory muscle use. Cardiovascular: Regular rate and rhythm. No murmur. No JVD. Abdomen: Soft, non-tender and non-distended. No palpable masses. Extremities: No edema. Non-tender. Skin: No rashes or lesions. Warm. Neurologic: No focal neurological deficits. CN II-XII grossly intact, but not individually tested. Psychiatric: Cooperative. Appropriate mood and affect. Total time spent with patient discussing and formulating plan of care: 35 minutes. This medical document was created using an electronic medical record system with [employer] dictation system. Although this document has been carefully reviewed, there may still be some phonetic and typographical errors. These areas are purely typographical due to imperfections of the software programs, and do not reflect any compromise in the patient's medical care. Condition at Discharge: Fair Final Diagnosis/Problems List Acute Colitis Secondary diagnosis: Anxiety Discharge Disposition: Home Discharge Instruct/Medications Diet: Regular Activity: No Restrictions, As Tolerated [facility] Medications: Flagyl 500mg po TID x 4 days Scheduled Docusate Sodium (Colace), 100 MG PO BID Scheduled PRN Dicyclomine Hcl (Bentyl Capsule), 1 CAP PO TID PRN Methocarbamol (Methocarbamol), 750 MG PO QHSP PRN 36 Discharge Statement: "Patient was advised to return to the ER or call 911 if any headaches, dizziness, shortness of breath, chest pain, abdominal pain, bleeding, fevers, or worsening of medical condition. Patient was counseled about treatment plan, medications, possible side effects, patientverbalized understanding. All questions were answered to the best of my ability. This discharge took greater then 30 minutes in planning, reviewing documentation, counseling the patient, and discussing with other team members." ASSESSMENT ASSESSMENT Assessment Acute Colitis Date of Service: Jan 03, 2025 Billing Provider: KARIME INIGUEZ NP Common Visit Codes: 76487-BOW/OBS DISCH DAY >30min KARIME INIGUEZ NP Jan 03, 2025 13:28
[2025-01-03] MEDS ORDERED: METR-344 PO (13:29)
[2025-01-03] MEDS: LACTULOSE 20Gm/30ML SOLN PO ONE (13:41)
== END 2025-01-03 15:17 | disposition home or self-care (01) | DRG 248 ==
LOC: ER 09:57 → OVERFLOW 18:26 → EAST 01-02 18:14
PROVIDERS: ADMIT Nurse Practitioner Acute Care; ATTEND Nurse Practitioner Acute Care
DX: A04.9 Bacterial intestinal infection, unspecified (principal); K92.2 Gastrointestinal hemorrhage, unspecified; E66.9 Obesity, unspecified; F41.9 Anxiety disorder, unspecified; Z68.30 Body mass index [BMI] 30.0-30.9, adult; K59.00 Constipation, unspecified
CPT/HCPCS: 36415; 71045; 74177; 80048; 80053; 81001; 83690; 84484; 85025; 85610; 85730; 96365; 96375; 99291; G0378; J2470; J3490

== ENCOUNTER 2025-05-06 15:29 | Emergency (ER) | payer MEDICAID ==
[~2025-05-06] VITALS: Ht 170.2 cm; Wt 89.8 kg
[~2025-05-06 15:29] MED LIST changes: +METR-344 PO
[2025-05-06] MEDS ORDERED: HYDR25SU21 PR (16:20)
[2025-05-06] MEDS ORDERED: IBUP-1455 PO (16:20)
--- NOTE | 2025-05-06 16:20 | ED.PDOC ---
GI ASSESSMENT HPI Comments Patient complaining of rectal pain times 20 days. States pain improved after using bowel movement. Does report a history of hemorrhoids. States last episode of hemorrhoids was over a year and a half ago. Says he went to the urgent care at [facility] and they advised to come into the emergency department. Patient reports no sexual intercourse, no long sitting during its job. Chief Complaint: Rectal Pain Time Seen by MD: 15:59 Primary Care Provider: JANAE Reviewed Notes: Nurses Notes Allergies: Coded Allergies: NO KNOWN ALLERGIES (Unverified , 11/07/21) Home Meds Active Scripts Metronidazole (Flagyl) 500 Mg Tab, 1 TAB PO TID for 5 Days, #15 TAB Prov:KARIME INIGUEZ GARNETT FIXER 01/03/25 Dicyclomine Hcl (BENTYL CAPSULE) 10 Mg Cp, 1 CAP PO TID PRN, #30 CAP 0 Refills Prov:MICHAEL SRINIVASAN 11/07/21 Methocarbamol (Methocarbamol) 750 Mg Tab, 750 MG PO QHSP PRN, #20 TAB Prov:MICHAEL SRINIVASAN 11/07/21 Docusate Sodium (Colace) 100 Mg Cap, 100 MG PO BID, #30 CAP Prov:MICHAEL SRINIVASAN 11/07/21 Information Source: Patient Mode of Arrival: Ambulatory Past Medical History PAST MEDICAL HISTORY: Anxiety Surgical History: Denies all surgeries Family History Family History: Reviewed,noncontributory to illness Social History Smoker: Non-Smoker Alcohol: Denies ETOH Use Drugs: Denies Drug Use Lives In: Home Constitutional: denies: chills, diaphoresis, fatigue, fever, malaise, sweats, weakness, others EENTM: denies: blurred vision, double vision, ear bleeding, ear discharge, ear drainage, ear pain, ear ringing, eye pain, eye redness, hearing loss, mouth pain, mouth swelling, nasal discharge, nose bleeding, nose congestion, nose pain , photophobia, tearing, throat pain, throat swelling, voice changes, others Respiratory: denies: cough, hemoptysis, orthopnea, SOB at rest, shortness of breath, SOB with excertion, stridor, wheezing, others Cardiovascular: denies: chest pain, dizzy spells, diaphoresis, Dyspnea on exertion, edema, irregular heart beat, left arm pain, lightheadedness, palpitations, PND, syncope, others Gastrointestinal: reports: rectal pain; denies: abdomen distended, abdominal pain, blood streaked bowels, constipated, diarrhea, dysphagia, difficulty swallowing, hematemesis, melena, nausea, poor appetite, poor fluid intake, rectal bleeding, vomiting, others Genitourinary: denies: burning, dysuria, flank pain, frequency, hematuria, incontinence, penile discharge, penile sore, pain, testicle pain, testicle swelling, urgency, others Neurological: denies: dizziness, fainting, headache, left sided numbness, left sided weakness, numbness, paresthesia, pre-existing deficit, right sided numbness, right sided weakness, seizure, speech problems, tingling, tremors, weakness, others Musculoskeletal: denies: back pain, gout, joint pain, joint swelling, muscle pain, muscle stiffness, neck pain, others Physical Exam General Appearance: No Apparent Distress, Normal HEENT: Normal ENT Inspection, Pharynx Normal, TMs Normal Neck: Full Range of Motion, Non-Tender, Normal, Normal Inspection Respiratory: Chest Non-Tender, Lungs Clear, No Accessory Muscle Use, No Respiratory Distress, Normal Breath Sounds Cardiovascular: No Edema, No JVD, No Murmur, No Gallop, Normal Peripheral Pulses, Regular Rate/Rhythm Breast Exam: Deferred Gastrointestinal: No Organomegaly, Non Tender, No Pulsatile Mass, Normal Bowel Sounds, Soft Genitalia: Deferred Pelvic: Deferred Rectal: Normal Exam Extremities: No calf tenderness, Normal capillary refill, Normal inspection, Normal range of motion, Non-tender, No pedal edema Musculoskeletal : Apperance: Normal Neurologic: Alert, windows deployment technician II-XII nml as Tested, No Motor Deficits, Normal Affect, Normal Mood, No Sensory Deficits Cerebellar Function: Normal Reflexes: Normal Skin: Dry, Normal Color, Warm Lymphatic: No Adenopathy Was a procedure done? Was a procedure done?: No GI differential Dx Differential Diagnosis: Gastritis/PUD, Gastroenteritis, GI hemorrhage X-Ray, Labs, Meds, VS Vital Signs Date Time Temp Pulse Resp B/P (MAP) Pulse Ox O2 Delivery O2 Flow Rate FiO2 05/06/25 15:32 97.9 90 18 121/63 97 97.9 X-Ray, Labs, Meds, VS Comment Imaging was reviewed by this provider, there is no obvious pathological or acute disease process. Pending radiology review Labs were reviewed by this provider, no abnormalities Vital signs reviewed by this provider, clinically stable Time of 1ST Reevaluation: 16:20 Reevaluation 1ST: Unchanged Patient Education/Counseling: Diagnosis, Treatment, Need For Follow Up (Follow up with PCP next available appointment. Return to the emergency department if symptoms worsen.) Family Education/Counseling: Diagnosis, Treatment SEPSIS Sepsis Screen Date sepsis recognized/suspect: May 06, 2025 Time Sepsis recognized/suspect: 1531 Recent Procedure: No On Antibiotic Therapy: No Respiratory Rate >20: No Heart Rate >90: No Temp<36 C (96.8 F) or >38.3 C: No SBP <90 or MAP <65 mmHG: No New Acute Mental Status Change: No Is the patient on CPAP, BIPAP,: No Vital Signs Date Time Temp Pulse Resp B/P (MAP) Pulse Ox O2 Delivery O2 Flow Rate FiO2 05/06/25 15:32 97.9 90 18 121/63 97 97.9 Departure 1 Departure Time of Disposition: 16:18 Impression: Primary Impression: Internal hemorrhoid Disposition: 01 HOME / SELF CARE / HOMELESS Condition: Fair e-Prescriptions Ibuprofen Micronized (Ibuprofen) 800 Mg Tab 800 MG PO TID PRN, #40 TAB Prov: ZAIRE HONG 05/06/25 Hydrocortisone Acetate (Anusol-Hc) 25 Mg Sup 1 SUPP MT BID, #28 SUPP 1 Refill Prov: ZAIRE HONG 05/06/25 Discharged With: Self Critical Care Note Critical Care Time?: No Stability Stability form required: No Heart Score Heart Score: Heart Score Response (Comments) Value History N/A 0 EKG N/A 0 Age N/A 0 Risk Factors N/A 0 Troponin N/A 0 Total 0 ZAIRE HONG May 06, 2025 16:20
[2025-05-06 16:57] VITALS: BP 127/87; PULSE 96; RESP 16; TEMP 98.7; O2SAT 97
== END 2025-05-06 17:02 | disposition home or self-care (01) ==
LOC: ER 15:29
DX: K64.8 Other hemorrhoids (principal); Z87.19 Personal history of other diseases of the digestive system; F41.9 Anxiety disorder, unspecified; Z79.899 Other long term (current) drug therapy